=== PATIENT | female | born 1930 | race Caucasian/White ===

== ENCOUNTER → 2016-10-25 | Outpatient (CLI) | payer MEDICARE, BC ==
[~2016-10-25] MED LIST: Z.0.NO CURRENT MEDS
[2016-10-25 09:10] LABS: AUTOMATED NEUTROPHIL # 2.6 TH/MM3 (1.8-7.7); BASOPHIL % 0.3 % (0.0-2.0); EOSINOPHIL # 0.2 TH/MM3 (0-0.4); EOSINOPHIL % 2.5 % (0.0-4.0); HEMATOCRIT 36.5 % (35.0-46.0); HEMO FLAGS DIFF FINAL; LYMPH % 51.8 % (9.0-44.0); LYMPHOCYTE # 3.2 TH/MM3 (1.0-4.8); MEAN CELL VOLUME 85.3 FL (80.0-100.0); MEAN CORPUSCULAR HEMOGLOBIN 27.5 PG (27.0-34.0); MEAN CORPUSCULAR HGB CONC 32.2 % (32.0-36.0); MONO % 4.4 % (0.0-8.0); PLATELET COUNT 333 TH/MM3 (150-450); RED BLOOD COUNT 4.28 MIL/MM3 (4.00-5.30); RED CELL DISTRIBUTION WIDTH 13.6 % (11.6-17.2); WHITE BLOOD COUNT 6.2 TH/MM3 (4.0-11.0)
[2016-10-25 09:41] LABS: ANION GAP 7 MEQ/L (5-15); AST (GOT) 23 U/L (15-37); BICARBONATE 26.2 MEQ/L (21.0-32.0); BLOOD UREA NITROGEN 19 MG/DL (7-18); CHLORIDE 107 MEQ/L (98-107); GLOMERULAR FILTRATION RATE 67 ML/MIN (>89); GLUCOSE,FASTING 100 MG/DL (74-99); POTASSIUM 4.3 MEQ/L (3.5-5.1); SODIUM (NA) 140 MEQ/L (136-145)
[2016-10-25 09:42] LABS: ALT (GPT) 32 U/L (10-53)
[2016-10-25 09:44] LABS: ALKALINE PHOSPHATASE 54 U/L (45-117); TOTAL BILIRUBIN ADULT 0.4 MG/DL (0.2-1.0)
[2016-10-25 17:00] LABS: BACTERIA, URINE RARE /hpf; BLOOD, URINE TRACE (NEG); GLUCOSE,URINE NEG (NEG); KETONE, URINE NEG (NEG); MUCUS URINE FEW /lpf (OCC); NITRITE,URINE NEG (NEG); SQUAMOUS EPITHELIAL CELL URINE 6 /hpf (0-5); URINE COLOR YELLOW (YELLW/STRAW)
== END ==
LOC: PLAB 07:01
PROVIDERS: ATTEND Family Medicine
DX: B02.9 Zoster without complications (principal); Z00.00 Encounter for general adult medical examination without abnormal findings; Z13.0 Encounter for screening for diseases of the blood and blood-forming organs and certain disorders involving the immune mechanism; Z13.1 Encounter for screening for diabetes mellitus; R39.15 Urgency of urination
CPT/HCPCS: 36415; 80053; 81001; 85025

== ENCOUNTER → 2016-11-12 | Outpatient (CLI) | payer MEDICARE, BC ==
[2016-11-15 19:54] LABS: A FUMIGATUS CLASS 0 (()); A TENUIS LESS THAN 0 kU/L (()); A TENUIS CLASS 0 (()); BAHIA GRASS LESS THAN 0.10 kU/L (()); BAHIA GRASS CLASS 0 (()); BERMUDA GRASS LESS THAN 0.10 kU/L (()); BERMUDA GRASS CLASS 0 (()); BIRCH CLASS 0 (()); C HERBARUM LESS THAN 0.10 kU/L (()); C HERBARUM CLASS 0 (()); CAT DANDER LESS THAN 0.10 kU/L (()); CAT DANDER CLASS 0 (()); COCKROACH LESS THAN 0.10 kU/L (()); COCKROACH CLASS 0 (()); COMMON PIGWEED LESS THAN 0.10 kU/L (()); COMMON PIGWEED CLASS 0 (()); COMMON RAGWEED LESS THAN 0.10 kU/L (()); COMMON RAGWEED CLASS 0 (()); D FARINAE LESS THAN 0.10 kU/L (()); D FARINAE CLASS 0 (()); D PTERONYSSINUS LESS THAN 0.10 kU/L (()); D PTERONYSSINUS CLASS 0 (()); DOG DANDER LESS THAN 0.10 kU/L (()); DOG DANDER CLASS 0 (()); ELM CLASS 0 (()); MAPLE (BOX ELDER) LESS THAN 0.10 kU/L (()); MAPLE (BOX ELDER) CLASS 0 (()); MOUNTAIN CEDAR LESS THAN 0.10 kU/L (()); MOUNTAIN CEDAR CLASS 0 (()); MOUSE CLASS 0 (()); MOUSE URINE PROTEINS LESS THAN 0.10 kU/L (()); NETTLE LESS THAN 0.10 kU/L (()); NETTLE CLASS 0 (()); OAK WHITE LESS THAN 0.10 kU/L (()); OAK WHITE CLASS 0 (()); P NOTATUM LESS THAN 0.10 kU/L (()); P NOTATUM CLASS 0 (()); PECAN TREE CLASS 0 (()); SHEEP SORREL LESS THAN 0.10 kU/L (()); SHEEP SORREL CLASS 0 (()); TIMOTHY GRASS LESS THAN 0.10 kU/L (()); TIMOTHY GRASS CLASS 0 (())
== END ==
LOC: PLAB 10:54
PROVIDERS: ATTEND Nurse Practitioner Family
DX: J30.9 Allergic rhinitis, unspecified (principal)
CPT/HCPCS: 36415; 82785; 86003